=== PATIENT | male | born 1955 | race Caucasian/White ===

== ENCOUNTER 2018-11-26 17:18 | Emergency (ER) | payer MEDICAID ==
[~2018-11-26] VITALS: Ht 182.9 cm; Wt 90.7 kg
--- NOTE | 2018-11-26 17:38 | NUR ---
ED Nurse Note: Pt arrived to ED to have PICC line dressing changed. Pt is AAOx4 respirations are even and unlabored and denies pain.
--- NOTE | 2018-11-26 18:25 | Emergency Room Report ---
History of Present Illness General Chief Complaint: General Complaint Source: Patient, Family Member Present Illness HPI This patient has a PICC line in his left arm. He is undergoing treatment through the PICC line. He had this PICC line placed one week ago in [place]. He is currently transitioning to the [facility]. He does not want to discuss why he has a PICC line in place. He is requesting a dressing change. He has no other complaints. Allergies: Coded Allergies: No Known Allergies (Unverified , 11/26/18) Patient History Past Medical History: see triage record Social History: Denies: smoking, alcohol use, drug use Reviewed Nursing Documentation: PMH: Agreed; PSxH: Agreed Nursing Documentation-PMH Past Medical History: No Stated History Review of Systems All Other Systems: negative except mentioned in HPI Physical Exam Vital Signs Date Time Temp Pulse Resp B/P (MAP) Pulse Ox O2 Delivery O2 Flow Rate FiO2 11/26/18 17:22 97.7 96 20 136/94 98 Room Air Sp02 EP Interpretation: reviewed, normal General Appearance: no apparent distress, alert, GCS 15, non-toxic Head: normocephalic, atraumatic Eyes: bilateral eye normal inspection, bilateral eye PERRL ENT: hearing grossly normal, normal pharynx, no angioedema, normal voice Neck: normal inspection Respiratory: no respiratory distress, no retraction, no accessory muscle use, speaking full sentences Rectal: deferred Musculoskeletal: gait/station normal, normal range of motion Neurologic: alert, oriented x3, responsive, motor strength/tone normal, sensory intact, speech normal Psychiatric: judgement/insight normal, memory normal, mood/affect normal, no suicidal/homicidal ideation Skin: normal color, no rash, warm/dry, well hydrated Medical Decision Making Diagnostic Impression: Primary Impression: Dressing change ER Course This patient presents for dressing change on his PICC line. He has no other complaints. He was educated in the emergency department was not the appropriate place for dressing change. He needed to get into a primary care physician and clinic. He indicated understanding. Last Vital Signs Date Time Temp Pulse Resp B/P (MAP) Pulse Ox O2 Delivery O2 Flow Rate FiO2 11/26/18 17:35 96 20 Room Air 11/26/18 17:22 97.7 136/94 98 Status: improved Disposition: HOME, SELF-CARE Condition: Improved Elif Paulsonb 27, 2019 18:25
[2018-11-26 19:20] VITALS: BP 136/94
== END 2018-11-26 19:20 | disposition home or self-care (01) ==
LOC: EMR 18:02
DX: Z48.00 Encounter for change or removal of nonsurgical wound dressing (principal)
CPT/HCPCS: 99281

== ENCOUNTER 2018-12-03 16:50 | Emergency (ER) | payer MEDICAID ==
[~2018-12-03] VITALS: Ht 182.9 cm; Wt 77.1 kg
[2018-12-03 17:06] VITALS: BP 147/103
--- NOTE | 2018-12-03 17:06 | NUR ---
ED Nurse Note: PT. AAOX4. AMBULATORY.CAME IN TO ER DUE TO LEFT UPPER ARM PICC LINE DRESSING CHANGE.
[2018-12-03] MEDS ORDERED: UNOBMED (17:10)
--- NOTE | 2018-12-03 17:50 | NUR ---
ED Nurse Note: DRESSING CHANGED DONE FOR THE PICC LINE.
--- NOTE | 2018-12-03 17:55 | Emergency Room Report ---
History of Present Illness General Chief Complaint: General Complaint Source: Patient Present Illness HPI 63-year-old male presents emergency department for dressing change of his left upper arm PICC line. Patient reports that he is receiving IV antibiotics for complicated left lower extremity infection. Patient states that he is due for some antibiotics later this evening however he needs his declined to the dressing changed. Patient denies fevers, chills or pain at this time. Patient has no other complaints other than requesting dressing change. Allergies: Coded Allergies: No Known Allergies (Unverified , 11/26/18) Patient History Past Medical History: see triage record Past Surgical History: none Pertinent Family History: none Reviewed Nursing Documentation: PMH: Agreed; PSxH: Agreed Nursing Documentation-PMH Past Medical History: No Stated History Review of Systems All Other Systems: negative except mentioned in HPI Physical Exam Vital Signs Date Time Temp Pulse Resp B/P (MAP) Pulse Ox O2 Delivery O2 Flow Rate FiO2 12/03/18 17:06 98.2 82 18 147/103 96 Room Air Medical Decision Making PA Attestation Dr. Agosto is my supervising Physician whom patient management has been discussed with. Diagnostic Impression: Primary Impression: Encounter for change of dressing ER Course 63-year-old male presents emergency department for dressing change of his left upper arm PICC line. Patient reports that he is receiving IV antibiotics for complicated left lower extremity infection. Patient states that he is due for some antibiotics later this evening however he needs his declined to the dressing changed. Patient denies fevers, chills or pain at this time. Patient has no other complaints other than requesting dressing change. Ddx considered but are not limited to cellulitis, abscess, PICC line malfunction just to name a few Vital signs: are WNL, pt. is afebrile H&PE are most consistent with left upper arm PICC line without evidence of current infection at PICC line site. ORDERS: none required at this time, the diagnosis is clinical ED INTERVENTIONS: -wound examined -PICC line was cleaned -Sterile dressing applied. DISCHARGE: At this time pt. is stable for d/c to home. Will provide printed patient care instructions, and any necessary prescriptions. Care plan and follow up instructions have been discussed with the patient prior to discharge. Last Vital Signs Date Time Temp Pulse Resp B/P (MAP) Pulse Ox O2 Delivery O2 Flow Rate FiO2 12/03/18 17:06 98.2 82 18 147/103 96 Room Air Disposition: HOME, SELF-CARE Condition: Stable Patient Instructions: Dressing Change, [id number] Additional Instructions: Take previously prescribed medications as directed. Follow up with a Primary Care Provider in 3-5 days, even if your symptoms have resolved. --Please review list of primary care clinics, if you do not already have a primary care provider Return sooner to ED if new symptoms occur, or current symptoms become worse. - Please note that this Emergency Department Report was dictated using [employer] accounting clerk technology software, occasionally this can lead to erroneous entry secondary to interpretation by the dictation equipment. Eloise Roland Dec 03, 2018 17:55
[2018-12-03 17:58] VITALS: BP 145/86
--- NOTE | 2018-12-03 17:59 | NUR ---
ED Nurse Note: PT. AAOX4. AMBULATORY. LEFT WITH STEADY GAIT..REGARDING D/C PAPERS AND PRESCRIPTIONS. PT. VERBALIZED THE UNDERSTANDING OF THE TEACHING. ID [place] REMOVED. LEFT WITH ALL BELONGINGS. PT. LEFT WITH HIS SON.
== END 2018-12-03 17:58 | disposition home or self-care (01) ==
LOC: EMR 17:45
DX: Z48.01 Encounter for change or removal of surgical wound dressing (principal)
CPT/HCPCS: 99282

== ENCOUNTER 2018-12-08 16:48 | Emergency (ER) | payer MEDICAID ==
[~2018-12-08] VITALS: Ht 172.7 cm; Wt 74.8 kg
[~2018-12-08 16:48] MED LIST: UNOBMED
[2018-12-08 17:28] VITALS: BP 143/83
--- NOTE | 2018-12-08 18:43 | Emergency Room Report ---
History of Present Illness General Chief Complaint: General Complaint Source: Patient, Family Member Present Illness HPI This is a 63-year-old male who has a history of left leg osteomyelitis and was treated at several hospitals in [place] and [place]. He has been going to several different hospitals. His recent hospitalization was at [facility] where he was started on IV Ancef for an unknown amount of time. He is here to find out what he needs to do with his PICC line and his antibiotics. He denies any symptoms whatsoever. He states that he missed his appointment 2 days ago at [facility] infectious disease clinic. He denies any fever. Denies any pain. Allergies: Coded Allergies: No Known Allergies (Unverified , 11/26/18) Patient History Past Medical History: see triage record Pertinent Family History: none Review of Systems All Other Systems: negative except mentioned in HPI Physical Exam Vital Signs Date Time Temp Pulse Resp B/P (MAP) Pulse Ox O2 Delivery O2 Flow Rate FiO2 12/08/18 17:06 97.7 94 18 143/83 94 Room Air General Appearance: well appearing, no apparent distress Head: normocephalic, atraumatic ENT: hearing grossly normal, normal voice Neck: full range of motion, supple Respiratory: no respiratory distress, speaking full sentences Musculoskeletal: no calf tenderness, other - no redness to left leg. healing wound Neurologic: alert, normal gait Psychiatric: mood/affect normal Skin: no rash Medical Decision Making Diagnostic Impression: Primary Impression: PICC (peripherally inserted central catheter) flush ER Course I attempted to page the infectious disease on-call [facility]. However it is after hours. At this time, the PICC line appears to be intact without any signs of infection. He has no pain. He has no swelling. My advice the patient is to follow-up with the infectious disease doctor for further and definitive workup. He is currently on Ancef. He is afebrile. He does have an appointment with the primary care physician on December 29. He is to continue his home health care. Last Vital Signs Date Time Temp Pulse Resp B/P (MAP) Pulse Ox O2 Delivery O2 Flow Rate FiO2 12/08/18 17:28 94 18 Room Air 12/08/18 17:28 97.7 143/83 94 Disposition: HOME, SELF-CARE Referrals: NOT CHOSEN IPA/,REFERRING (PCP) Patient Instructions: PICC Home Guide KEMAL CASTRO Dec 08, 2018 18:43
[2018-12-08 19:15] VITALS: BP 143/83
--- NOTE | 2018-12-08 19:17 | NUR ---
ED Nurse Note:picc line dressing was chanched per pt's request, then he was cleared for d/c ,given d/c instructions and has to fallow up with his infectious specialist- pt. verbalized understanding, ;eft ER with steady gait
== END 2018-12-08 19:19 | disposition home or self-care (01) ==
LOC: EMR 17:43
DX: Z45.2 Encounter for adjustment and management of vascular access device (principal)
CPT/HCPCS: 99282